=== PATIENT | female | born 1945 | race Caucasian/White ===

== ENCOUNTER 2017-01-18 11:30 | Outpatient (RCR) | payer MEDICARE, BC ==
[~2017-01-18 11:30] MED LIST: ASPIRIN 32325 MG/TAB PO; ATROVENT I0.2 MG/1 M IH; BUSPAR10 MG PO; CELEXA40 MG PO; DEXTROAMPHETAMI10 M1 PO; DIOVAN 80MG80 MG PO; DYRENIUM 50MG C50 MG PO; HCTZ 25MG TAB25 MG PO; LEVOXYL0.125 MG PO; LOPRESSOR 225 MG/TAB PO; MAREPA1200 MG PO; NITROSTAT0.4 MG/TAB SL; PLAVIX 75MG TAB75 MG PO; PRAVACHOL 40MG40 MG PO; PROAIR HFA0.09 MG/AC IH; RT ADVAIR 228 DISKUS IH; [UNRECOGNIZED DRUG - OTHER] IJ
== END 2017-02-18 09:14 | disposition still patient (30) ==
LOC: WSPT 11:30
DX: M54.5 Low back pain (principal)
CPT/HCPCS: G8978-GP; G8979-GP

== ENCOUNTER 2017-04-25 11:47 | Outpatient (CLI) | payer MEDICARE, BC ==
[2017-04-25] VITALS (8 sets, daily range): BP systolic 139–152; BP diastolic 71–78; PULSE 58–68
[~2017-04-25] VITALS: Ht 172.7 cm; Wt 99.1 kg
[~2017-04-25 11:47] MED LIST changes: +ADDERALL XR5 MG PO; +MAXZIDE-25MG TA1 TAB PO; +PROTONIX 40MG T40 MG PO; +REXULTI1 MG PO; +SYNTHROID0.137 MG PO; +VIIBRYD20 MG PO; +WELLBUTRIN 100100 MG PO
== END 2017-04-25 15:22 | disposition home or self-care (01) ==
LOC: COL.RAD 11:47
DX: M48.061 Spinal stenosis, lumbar region without neurogenic claudication (principal); M43.16 Spondylolisthesis, lumbar region; M51.27 Other intervertebral disc displacement, lumbosacral region; M46.87 Other specified inflammatory spondylopathies, lumbosacral region; N20.0 Calculus of kidney; M89.38 Hypertrophy of bone, other site; M47.816 Spondylosis without myelopathy or radiculopathy, lumbar region; M51.36 Other intervertebral disc degeneration, lumbar region
CPT/HCPCS: Q9965

== ENCOUNTER → 2017-05-23 | Outpatient (CLI) | payer MEDICARE, BC | LOC: COL.RAD 15:31 | DX: M43.16 Spondylolisthesis, lumbar region (principal); M47.816 Spondylosis without myelopathy or radiculopathy, lumbar region; M48.061 Spinal stenosis, lumbar region without neurogenic claudication; M85.80 Other specified disorders of bone density and structure, unspecified site; M46.86 Other specified inflammatory spondylopathies, lumbar region ==

== ENCOUNTER → 2017-05-23 | Outpatient (CLI) | payer MEDICARE, BC | LOC: MHCPAIN 14:11 | DX: G89.29 Other chronic pain (principal); M47.27 Other spondylosis with radiculopathy, lumbosacral region; M48.061 Spinal stenosis, lumbar region without neurogenic claudication | CPT/HCPCS: G0463 ==

== ENCOUNTER → 2017-06-06 | Outpatient (CLI) | payer MEDICARE, BC | LOC: MHCPAIN 14:29 | DX: G89.29 Other chronic pain (principal); M47.27 Other spondylosis with radiculopathy, lumbosacral region; M48.061 Spinal stenosis, lumbar region without neurogenic claudication | CPT/HCPCS: G0463 ==

== ENCOUNTER → 2017-06-23 | Outpatient (CLI) | payer MEDICARE, BC | LOC: MHCPAIN 09:04 | DX: M47.27 Other spondylosis with radiculopathy, lumbosacral region (principal); M43.17 Spondylolisthesis, lumbosacral region; M53.2X6 Spinal instabilities, lumbar region; M48.061 Spinal stenosis, lumbar region without neurogenic claudication | CPT/HCPCS: J1100; J2250; J3010; Q9967 ==

== ENCOUNTER → 2017-07-19 | Outpatient (CLI) | payer MEDICARE, BC | LOC: MHCPAIN 12:55 | DX: G89.29 Other chronic pain (principal); M47.27 Other spondylosis with radiculopathy, lumbosacral region; M53.3 Sacrococcygeal disorders, not elsewhere classified; M48.061 Spinal stenosis, lumbar region without neurogenic claudication | CPT/HCPCS: G0463 ==

== ENCOUNTER → 2017-08-18 | Outpatient (CLI) | payer MEDICARE, BC | LOC: MHCPAIN 11:50 | DX: M47.27 Other spondylosis with radiculopathy, lumbosacral region (principal); M43.16 Spondylolisthesis, lumbar region; M48.061 Spinal stenosis, lumbar region without neurogenic claudication | CPT/HCPCS: J1100; J3010; Q9967 ==

== ENCOUNTER → 2017-09-14 | Outpatient (CLI) | payer MEDICARE, BC | LOC: MHCPAIN 11:46 | DX: G89.29 Other chronic pain (principal); M47.817 Spondylosis without myelopathy or radiculopathy, lumbosacral region; M54.16 Radiculopathy, lumbar region; M48.061 Spinal stenosis, lumbar region without neurogenic claudication | CPT/HCPCS: G0463 ==

== ENCOUNTER 2017-09-23 17:14 | Inpatient (IN) | payer MEDICARE, BC ==
[~2017-09-23] VITALS: Ht 167.6 cm; Wt 98.8 kg
[2017-09-23 18:13] LABS: BASO % 0.6 % (0.0-2.0); EOS % 0.2 % (0-4.0); GRAN # 3.2 (1.4-6.5); GRAN % 50.3 % (42.2-75.2); HEMATOCRIT 48.4 % (37.0-47.0); HEMOGLOBIN 16.3 g/dl (12.5-16.0); LYMPH # 2.3 (1.2-3.4); MEAN CELL VOLUME 90 fl (80.0-100.0); MEAN CORPUSCULAR HEMOGLOBIN 30 pg (27.0-31.0); MEAN CORPUSCULAR HGB CONC 34 g/dl (33.0-37.0); MEAN PLATELET VOLUME 10.4 fl (7.4-10.4); MONO # 0.8 (0.1-0.6); MONO % 12.7 % (1.7-9.3); PLATELET COUNT 220 K/mm3 (130-400); RED BLOOD COUNT 5.41 M/mm3 (4.10-5.30); REDCELL DISTRIBUTION WIDTH-CV 13.4 % (11.5-14.5)
[2017-09-23 18:20] LABS: INR 1.1 (0.8-3.0); PROTHROMBIN TIME 12.3 SECONDS (9.7-12.8)
[2017-09-23 18:28] LABS: ALANINE AMINOTRANSFERASE 44 U/L (9-52); ALBUMIN 4.5 gm/dL (3.5-5.0); ALKALINE PHOSPHATASE 96 U/L (50-136); ANION GAP 15 mmol/L (7-16); AST,SGOT 32 U/L (15-37); BILIRUBIN,TOTAL 1.5 mg/dL (0.0-1.0); BLOOD UREA NITROGEN 15 mg/dL (7-17); CALCIUM 8.9 mg/dL (8.4-10.2); CARBON DIOXIDE 25 mmol/L (22-30); CHLORIDE 100 mmol/L (98-107); CREATININE, serum 1.25 mg/dL (0.52-1.25); GLUCOSE 145 mg/dL (74-106); POTASSIUM 3.6 mmol/L (3.4-5.0); SODIUM 140 mmol/L (137-145); TOTAL PROTEIN 7.7 gm/dL (6.4-8.2)
[2017-09-23 18:44] LABS: TROPONIN-I < 0.012 ng/mL (0.000-0.034)
[2017-09-23 19:25] LABS: COLLECTION METHOD CLEAN CATCH
[2017-09-23 19:53] LABS: MUCOUS Present /lpf; PH 5 (5-8); SQUAMOUS EPITHELIAL 0-2 /hpf; URINE APPEARANCE Clear; URINE BACTERIA None Seen /hpf; URINE BILIRUBIN Negative (NEGATIVE); URINE BLOOD 2+ (NEGATIVE); URINE COLOR Yellow; URINE GLUCOSE Negative (NEGATIVE); URINE KETONE Negative (NEGATIVE); URINE LEUKOCYTE ESTERASE 2+ (NEGATIVE); URINE NITRATE Negative (NEGATIVE); URINE PROTEIN(semi-quant) Negative (NEGATIVE); URINE UROBILINOGEN Negative (NEGATIVE)
[2017-09-23 22:09] VITALS: BP 117/51; PULSE 87; TEMP 98.5
[2017-09-24 00:22] VITALS: BP 133/50; PULSE 86; TEMP 98.2
[2017-09-24 05:11] VITALS: BP 122/65; PULSE 98; TEMP 98.5
[2017-09-24 06:57] LABS: BASO % 0.4 % (0.0-2.0); EOS % 0.4 % (0-4.0); GRAN # 2.2 (1.4-6.5); GRAN % 47.1 % (42.2-75.2); LYMPH % 41.8 % (20.0-51.0); MEAN CELL VOLUME 91 fl (80.0-100.0); MEAN CORPUSCULAR HEMOGLOBIN 30 pg (27.0-31.0); MEAN CORPUSCULAR HGB CONC 33 g/dl (33.0-37.0); MEAN PLATELET VOLUME 10.8 fl (7.4-10.4); MONO # 0.5 (0.1-0.6); MONO % 9.9 % (1.7-9.3); PLATELET COUNT 185 K/mm3 (130-400); RED BLOOD COUNT 4.51 M/mm3 (4.10-5.30); REDCELL DISTRIBUTION WIDTH-CV 13.5 % (11.5-14.5)
[2017-09-24 07:01] LABS: CALCIUM 8.2 mg/dL (8.4-10.2); CREATININE, serum 1.23 mg/dL (0.52-1.25); POTASSIUM 3.1 mmol/L (3.4-5.0)
[2017-09-24 07:15] LABS: HEMOGLOBIN 13.7 g/dl (12.5-16.0)
[2017-09-24 07:31] LABS: TSH w REFLEX 7.41 uIU/mL (0.465-4.680)
[2017-09-24 08:00] VITALS: BP 145/60; PULSE 115; TEMP 99.1
[2017-09-24 12:02] VITALS: BP 113/48; PULSE 73; TEMP 98
[2017-09-24 15:04] VITALS: BP 147/48; PULSE 84; TEMP 98.6
[2017-09-25 00:01] VITALS: BP 119/62; PULSE 85; TEMP 98.7
[2017-09-25 06:23] VITALS: BP 134/98; PULSE 75; TEMP 98.7
[2017-09-25 06:53] LABS: HEMATOCRIT 40.1 % (37.0-47.0); MEAN CELL VOLUME 92 fl (80.0-100.0); MEAN CORPUSCULAR HEMOGLOBIN 30 pg (27.0-31.0); MEAN CORPUSCULAR HGB CONC 32 g/dl (33.0-37.0); MEAN PLATELET VOLUME 10.6 fl (7.4-10.4); PLATELET COUNT 187 K/mm3 (130-400); RED BLOOD COUNT 4.35 M/mm3 (4.10-5.30); REDCELL DISTRIBUTION WIDTH-CV 13.7 % (11.5-14.5)
[2017-09-25 07:13] LABS: CALCIUM 8.3 mg/dL (8.4-10.2); CREATININE, serum 1.25 mg/dL (0.52-1.25); PHOSPHOROUS 3.2 mg/dL (2.5-4.5); POTASSIUM 3.6 mmol/L (3.4-5.0)
[2017-09-25 08:03] VITALS: BP 133/54; PULSE 85; TEMP 98.7
[2017-09-25] MEDS ORDERED: IPRATROPIUM BROM3 M1 IH (09:47)
[2017-09-25] MEDS ORDERED: PREDNISONE20 MG PO (09:49)
[2017-09-25] MEDS ORDERED: ZITHROMAX 250M250 MG PO (09:50)
[2017-09-25 13:39] LABS: BAND 1 % (0-10); LYMPHOCYTE 41 % (20.0-51.0); NEUTROPHILS 54 % (42.0-75.2); PLATELET ESTIMATE NORMAL (NORMAL)
== END 2017-09-25 12:46 | disposition home or self-care (01) | DRG 872 ==
LOC: COL.ER 17:14 → MEDICAL 20:00
PROVIDERS: Emergency Medicine; Internal Medicine; Nurse Practitioner
DX: A41.9 Sepsis, unspecified organism (principal); J44.1 Chronic obstructive pulmonary disease with (acute) exacerbation; I50.32 Chronic diastolic (congestive) heart failure; R65.20 Severe sepsis without septic shock; I11.0 Hypertensive heart disease with heart failure; I25.10 Atherosclerotic heart disease of native coronary artery without angina pectoris; I27.22 Pulmonary hypertension due to left heart disease; F17.210 Nicotine dependence, cigarettes, uncomplicated; J45.909 Unspecified asthma, uncomplicated; F98.8 Other specified behavioral and emotional disorders with onset usually occurring in childhood and adolescence
CPT/HCPCS: 99222-AI; 99239; J0456; J0696; J1650; J2405; J2930; J7030; J7050

== ENCOUNTER → 2018-05-30 | Outpatient (CLI) | payer MEDICARE, BC ==
[~2018-05-30] MED LIST changes: +IPRATROPIUM BROM3 M1 IH; +PREDNISONE20 MG PO; +ZITHROMAX 250M250 MG PO
[2018-05-30 12:38] LABS: CALCIUM 9.5 mg/dL (8.4-10.2); CREATININE, serum 1.33 mg/dL (0.52-1.25); POTASSIUM 3.5 mmol/L (3.4-5.0); URIC ACID 10.5 mg/dL (2.5-6.2)
== END ==
LOC: COL.LAB 12:20
PROVIDERS: Internal Medicine
DX: M10.071 Idiopathic gout, right ankle and foot (principal)

== ENCOUNTER → 2018-09-27 | Outpatient (CLI) | payer MEDICARE, BC | LOC: MHCPAIN 12:41 | DX: G89.29 Other chronic pain (principal); M47.817 Spondylosis without myelopathy or radiculopathy, lumbosacral region; M54.16 Radiculopathy, lumbar region; M53.3 Sacrococcygeal disorders, not elsewhere classified; M48.061 Spinal stenosis, lumbar region without neurogenic claudication | CPT/HCPCS: G0463 ==

== ENCOUNTER 2018-11-06 14:00 | Outpatient (RCR) | payer MEDICARE, BC | END 2018-11-29 10:27 | disposition home or self-care (01) | LOC: WSPT 14:00 | DX: M47.817 Spondylosis without myelopathy or radiculopathy, lumbosacral region (principal); M48.061 Spinal stenosis, lumbar region without neurogenic claudication; M53.3 Sacrococcygeal disorders, not elsewhere classified ==

== ENCOUNTER 2018-12-21 17:09 | Inpatient (IN) | payer MEDICARE, BC ==
[~2018-12-21] VITALS: Ht 170.2 cm; Wt 96.4 kg
[2018-12-21 18:21] LABS: BASO % 0.3 % (0.0-2.0); EOS % 0.5 % (0-4.0); GRAN # 5.9 (1.4-6.5); HEMATOCRIT 44.4 % (37.0-47.0); HEMOGLOBIN 15.4 g/dl (12.5-16.0); LYMPH # 1.8 (1.2-3.4); LYMPH % 20.8 % (20.0-51.0); MEAN CELL VOLUME 87 fl (80.0-100.0); MEAN CORPUSCULAR HEMOGLOBIN 30 pg (27.0-31.0); MEAN CORPUSCULAR HGB CONC 35 g/dl (33.0-37.0); MEAN PLATELET VOLUME 10.5 fl (7.4-10.4); MONO % 11.2 % (1.7-9.3); PLATELET COUNT 308 K/mm3 (130-400); RED BLOOD COUNT 5.12 M/mm3 (4.10-5.30); REDCELL DISTRIBUTION WIDTH-CV 13.9 % (11.5-14.5)
[2018-12-21 18:30] LABS: PROTHROMBIN TIME 12.2 SECONDS (9.7-12.8)
[2018-12-21 18:32] LABS: PARTIAL THROMBOPLASTIN TIME 29.3 SECONDS (26.0-37.0)
[2018-12-21 18:36] LABS: ALBUMIN 4.2 gm/dL (3.5-5.0); BILIRUBIN,TOTAL 2.5 mg/dL (0.0-1.0); C-REACTIVE PROTEIN 6.1 mg/dL (0.0-0.9); CREATININE, serum 1.13 (0.52-1.25); POTASSIUM 3.4 mmol/L (3.4-5.0); TOTAL PROTEIN 7.7 gm/dL (6.4-8.2)
[2018-12-21 19:29] LABS: COLLECTION METHOD CLEAN CATCH
[2018-12-21 20:06] LABS: MUCOUS Present /lpf; PH 5 (5-8); URINE APPEARANCE Hazy; URINE BACTERIA None Seen /hpf; URINE BILIRUBIN Negative (NEGATIVE); URINE BLOOD Negative (NEGATIVE); URINE COLOR Yellow; URINE GLUCOSE Negative (NEGATIVE); URINE KETONE Trace (NEGATIVE); URINE LEUKOCYTE ESTERASE 2+ (NEGATIVE); URINE NITRATE Negative (NEGATIVE); URINE PROTEIN(semi-quant) Negative (NEGATIVE); URINE RBC 0-2 /hpf; URINE UROBILINOGEN Negative (NEGATIVE)
[2018-12-21] MEDS ORDERED: CLARITIN 1010 MG/TAB PO (20:53)
[2018-12-21] MEDS ORDERED: OSCAL 500 TAB500 MG PO (20:54)
[2018-12-21] MEDS ORDERED: ZYLOPRIM 300MG300 MG PO (20:55)
[2018-12-21] MEDS ORDERED: NORITATE1% TOP (20:55)
[2018-12-21] MEDS ORDERED: VIIBRYD40 MG PO (21:37)
[2018-12-21] MEDS ORDERED: WELLBUTRIN SR100 M1 PO (21:40)
[2018-12-21] MEDS ORDERED: RT ADVAIR 228 DISKUS IH (21:42)
[2018-12-21] MEDS ORDERED: PROTONIX 40MG T40 MG PO (21:43)
[2018-12-21] MEDS ORDERED: MULTIPLE VITAMI1 CAP PO (21:46)
--- NOTE | 2018-12-21 22:10 | NUR ---
Report received from ER nurse. Admitted to room 346 via gurney. Assessment complete. States she hasnt taken any medications in the last five days except today took an antidepressant. Son at bedside. Oriented to room and policy. VS stable. Orders initiated. Right lower extremity-mostly foot-red, warm, swollen. Redness marked by ER staff. Elevated on pillows. Denies need for pain medication. C/O indegestion. Meds given per dr order. Plan of care discussed. Denies questions at this time. Call light within reach. Bed in low postion/locked. Will monitor.
[2018-12-21 22:25] VITALS: BP 149/62; PULSE 87; TEMP 99.7
[2018-12-22] VITALS (7 sets, daily range): BP systolic 107–146; BP diastolic 45–71; PULSE 62–75; TEMP 98–99.5
--- NOTE | 2018-12-22 05:30 | NUR ---
Rested for the last few hours. States her pain is 4/10t to right foot. Redness/swelling marked in ER unchanged. Up to commode with 2-pivot transfer. Transfers okay but requires two. AM meds given. Denies questions or concerns at this time. Call light within reach. Will monitor.
--- NOTE | 2018-12-22 09:19 | NUR ---
Patient resting in bed. She did well with breakfast. Denies the need for pain medication, reports pain is managed at rest. Iv antibioitc as ordered. Right foot is reddened & swollen. skin flaky. L.foot less swollen, third toe reddened & swollen, skin flaky. Will monitor.
--- NOTE | 2018-12-22 10:36 | NUR ---
Initial visit; Patient thanked Bundle Cutter for looking in on her and offering spiritual care and to keep Fern in her prayers.
--- NOTE | 2018-12-22 12:50 | NUR ---
HARITHA met with the patient to discuss a discharge plan. The pt lives alone in [place]. The pt has a cane and a walker and denies usage. The pt reports she has limited ability for ADLs. The pt has not ever had home health services. The pt's PCP is Dr. Washington and/or Dr. Funes. The pt receives her medications via mail from [facility] or [facility]. The pt report no difficulties obtainin her medications at this time. The pt. does not have advanced directives in the EMR, but was interested in obtaining a DPOA-HC form. HARITHA provided the form. HARITHA provided a packet of resources for the pt. PT/OT were ordered for the patient. SW will continue to follow for discharge recommendations.
--- NOTE | 2018-12-22 19:22 | NUR ---
Patient has had an uneventful day. Sitting up in bed, eating dinner. Denies the need for pain medication. Report to kelly Lal.
[2018-12-23 05:30] VITALS: BP 108/42; PULSE 60; TEMP 98.5
--- NOTE | 2018-12-23 06:30 | NUR ---
Patient had a good night. She was up several times to the bathroom in the night. She was not able to have a bowel movement. She is having pain with ambulation to her feet but not when laying in bed. She did not want to take anything for pain. She stated this is the most she has moved in a few weeks. No other changes at this time. Call light within reach.
[2018-12-23 06:40] LABS: BASO % 0.3 % (0.0-2.0); EOS # 0.1 (0.0-0.7); EOS % 0.9 % (0-4.0); GRAN # 3.1 (1.4-6.5); GRAN % 52.9 % (42.2-75.2); HEMATOCRIT 41.1 % (37.0-47.0); HEMOGLOBIN 13.6 g/dl (12.5-16.0); LYMPH # 1.9 (1.2-3.4); LYMPH % 32.8 % (20.0-51.0); MEAN CELL VOLUME 89 fl (80.0-100.0); MEAN CORPUSCULAR HEMOGLOBIN 30 pg (27.0-31.0); MEAN CORPUSCULAR HGB CONC 33 g/dl (33.0-37.0); MONO # 0.7 (0.1-0.6); MONO % 12.6 % (1.7-9.3); PLATELET COUNT 273 K/mm3 (130-400); REDCELL DISTRIBUTION WIDTH-CV 14.1 % (11.5-14.5)
[2018-12-23 06:48] LABS: CALCIUM 8.7 mg/dL (8.4-10.2); CREATININE, serum 1.17 (0.52-1.25); POTASSIUM 3.1 mmol/L (3.4-5.0)
--- NOTE | 2018-12-23 07:00 | NUR ---
Report received from TACO Lal. Pt in bed resting with eyes closed, will continue to monitor.
[2018-12-23 08:12] VITALS: BP 120/37; PULSE 58; TEMP 97.6
--- NOTE | 2018-12-23 10:45 | NUR ---
Assessment charted. Pt in bed resting with eyes open. Agreeable to wake up now but was resting this am d/t poor night last night, states she wasn't able to sleep well and did not feel oriented last night. Oriented at this time, family here to visit. Pt has pain in feet, RLE is more sensitive and really only hurts when ambulating. Pt ordering breakfast. INT to RF. Will continue to monitor.
[2018-12-23 11:39] VITALS: BP 108/42; PULSE 53; TEMP 98.3
--- NOTE | 2018-12-23 14:05 | NUR ---
Contracts Officer offered prayer and support with patient.
[2018-12-23 17:10] VITALS: BP 119/54; PULSE 65; TEMP 98.3
--- NOTE | 2018-12-23 17:53 | NUR ---
Pt has done well over shift. Up with me to walk around hallways approximately 40 feet this afternoon. Walks tenderly on R foot from soreness, gait is hesitant with wheeled walker. Resting in bed with feet elevated, denchristies needs, ordered supper, reading quietly, will give bedside shift report to nightift nurse who will resume care.
--- NOTE | 2018-12-23 20:00 | NUR ---
Patient assisted to bathroom with 1 assist and walker. Gait slightly unsteady d/t painful right foot. Back to bed after voiding yellow urine. SL to right forearm without redness or swelling. Is alert and oriented x4.
[2018-12-23 20:46] VITALS: BP 132/49; PULSE 72; TEMP 99
[2018-12-23 23:41] VITALS: BP 121/48; PULSE 68; TEMP 99
--- NOTE | 2018-12-24 04:05 | NUR ---
Patient assisted to bathroom, transfers slowly with steady gait and walker. Voids and back to bed. Denies need for pain meds at this time. Right leg elevated on 2 pillows.
[2018-12-24 04:31] VITALS: BP 124/67; PULSE 57; TEMP 98.1
--- NOTE | 2018-12-24 08:30 | NUR ---
Patient resting in bed at this time. Patient is alert and oriented, answers questions appropriately. Cellulitis in right foot is well within marked borders and skin appears a dull red. Left 3rd toe is reddened in a small area just below the toe nail. Patient states that the right foot is still painful to the touch and painful with movement, but declines pain medications for it. Patient denies needs at this time, call light within reach.
[2018-12-24 08:50] VITALS: BP 116/46; PULSE 66; TEMP 98.1
--- NOTE | 2018-12-24 09:52 | NUR ---
SW and community service patrol officer met with the patient to witness a DPOA-HC signing. The original was placed in the chart and copy was provided to the pt. There are no additional needs at this time.
--- NOTE | 2018-12-24 11:29 | NUR ---
HARITHA provided a list from Medicare.gov of home health agencies that serve the [facility]. The pt will look over the list and inform HARITHA about her chose. HARITHA will continue to follow.
[2018-12-24 11:37] VITALS: BP 123/49; PULSE 63; TEMP 98.5
[2018-12-24 16:07] VITALS: BP 128/55; PULSE 64; TEMP 98.5
[2018-12-24 19:49] VITALS: BP 135/63; PULSE 62; TEMP 98
--- NOTE | 2018-12-24 22:00 | NUR ---
Patient resting well in bed. IV site to right FA without redness or swelling. Takes HS meds without problem. Denies need for pain meds at this time. RT foot continues with swelling.
[2018-12-24 23:55] VITALS: BP 125/52; PULSE 63; TEMP 98.5
[2018-12-25 04:54] VITALS: BP 136/61; PULSE 58; TEMP 97.7
--- NOTE | 2018-12-25 05:50 | NUR ---
Patient reports resting well. Takes AM meds without problem.
[2018-12-25 06:53] LABS: C-REACTIVE PROTEIN 1.8 mg/dL (0.0-0.9); CALCIUM 8.9 mg/dL (8.4-10.2); CREATININE, serum 1.11 (0.52-1.25); POTASSIUM 3.8 mmol/L (3.4-5.0)
[2018-12-25 07:55] VITALS: BP 111/55; PULSE 56; TEMP 97.6
--- NOTE | 2018-12-25 09:55 | NUR ---
HARITHA met with the patient to review discharge plan. The patient reports that she is interested in post-acute rehab at [facility]. HARITHA presented and explained the patient choice form to the patient. The patient preferred 1) [facility] and then either [facility] or [facility] for a second preference. Patient choice form signed by the patient and she was provided a copy. HARITHA then contacted and faxed a referral to all three facilities. SW awaiting their screening.
--- NOTE | 2018-12-25 11:13 | NUR ---
Andrew, at [facility], reports that they can accept the patient for a skilled stay. SW to inform the patient. Awaiting Pa's screening.
[2018-12-25] MEDS ORDERED: TYLENOL 325MG325 MG PO (12:03)
[2018-12-25] MEDS ORDERED: MOTRIN 400400 MG/TAB PO (12:05)
[2018-12-25] MEDS ORDERED: CEPHALEXIN500 M1 PO (12:08)
[2018-12-25 12:13] VITALS: BP 120/75; PULSE 54; TEMP 98.5
--- NOTE | 2018-12-25 12:38 | NUR ---
First visit from the test case developer. No needs right now.
--- NOTE | 2018-12-25 13:31 | NUR ---
Meagan, at [facility], reports that they can accept the patient. HARITHA informed the patient and patient's son. The patient reports that she would still like to pursue with [facility]. The patient is to discharge today, 12/25, to [facility] for a skilled stay. Transportation was set for 1430, via [facility]. HARITHA informed the patient, patient's nurse, and the patient's son via phone. They were all in agreeance. HARITHA also presented and explained the IM form to the patient. The patient verbalized understanding, signed, and she was provided a copy. No additional needs at this time.
--- NOTE | 2018-12-25 14:46 | NUR ---
PATIENT DISCHARGING TO [facility]. GAVE PRODUCTION STAGE MANAGER INFO PACKET. CALLED REPORT. DC'D RIGHT FORARM IV, COVERED SITE WITH BANDAID. PATIENT DISCHARGED WITH ALL HER PERSONAL BELONGINGS.
== END 2018-12-25 14:48 | DRG 603 ==
LOC: COL.ER 17:09 → SURG 20:33
PROVIDERS: Emergency Medicine; Internal Medicine; Physician Assistant; ADMIT Family Medicine
DX: L03.115 Cellulitis of right lower limb (principal); I50.32 Chronic diastolic (congestive) heart failure; I11.0 Hypertensive heart disease with heart failure; J44.9 Chronic obstructive pulmonary disease, unspecified; E78.5 Hyperlipidemia, unspecified; F32.9 Major depressive disorder, single episode, unspecified; E03.9 Hypothyroidism, unspecified; M10.9 Gout, unspecified; I25.10 Atherosclerotic heart disease of native coronary artery without angina pectoris; Z95.5 Presence of coronary angioplasty implant and graft; R19.7 Diarrhea, unspecified; F98.8 Other specified behavioral and emotional disorders with onset usually occurring in childhood and adolescence; R53.81 Other malaise
CPT/HCPCS: 99222-AI; 99232-AI; 99239; J0690; J1650; J7030

== ENCOUNTER → 2020-05-16 | Outpatient (CLI) | payer MEDICARE, BC ==
[~2020-05-16] MED LIST changes: +CEPHALEXIN500 M1 PO; +CLARITIN 1010 MG/TAB PO; +MOTRIN 400400 MG/TAB PO; +MULTIPLE VITAMI1 CAP PO; +NORITATE1% TOP; +OSCAL 500 TAB500 MG PO; +TYLENOL 325MG325 MG PO; +VIIBRYD40 MG PO; +WELLBUTRIN SR100 M1 PO; +ZYLOPRIM 300MG300 MG PO
== END ==
LOC: COL.RAD 12:06
DX: M47.816 Spondylosis without myelopathy or radiculopathy, lumbar region (principal); M51.36 Other intervertebral disc degeneration, lumbar region; G95.9 Disease of spinal cord, unspecified

== ENCOUNTER → 2022-09-15 | Outpatient (REF) | payer MEDICARE, BC | LOC: ZCOL.LAB 15:14 | DX: R05.9 Cough, unspecified (principal) ==

== ENCOUNTER 2022-11-14 14:33 | Inpatient (IN) | payer MEDICARE, BC ==
[~2022-11-14] VITALS: Ht 167.6 cm; Wt 91.8 kg
[2022-11-14 15:06] LABS: BASO # 0.1 K/mm3 (0.0-0.2); BASO % 0.8 % (0.0-2.0); EOS # 0.2 K/mm3 (0.0-0.7); EOS % 2.3 % (0.0-4.0); GRAN # 6.5 K/mm3 (1.4-6.5); GRAN % 61.7 % (42.2-75.2); HEMATOCRIT 47.1 % (37.0-47.0); HEMOGLOBIN 15.5 g/dl (12.5-16.0); LYMPH # 2.7 K/mm3 (1.2-3.4); LYMPH % 25.9 % (20.0-51.0); MEAN CELL VOLUME 92 fl (80.0-100.0); MEAN CORPUSCULAR HEMOGLOBIN 30 pg (27-31); MEAN CORPUSCULAR HGB CONC 33 g/dl (33.0-37.0); MEAN PLATELET VOLUME 10.5 fl (7.4-10.4); MONO # 0.9 K/mm3 (0.1-0.6); MONO % 8.4 % (1.7-9.3); PLATELET COUNT 250 K/mm3 (130-400); RED BLOOD COUNT 5.15 M/mm3 (4.10-5.30); REDCELL DISTRIBUTION WIDTH-CV 14.7 % (11.5-14.5)
[2022-11-14 15:23] LABS: ALANINE AMINOTRANSFERASE 29 U/L (0-55); ALBUMIN 3.8 gm/dL (3.4-4.8); ALKALINE PHOSPHATASE 76 U/L (40-150); ANION GAP 15 mmol/L (7-16); AST,SGOT 35 U/L (5-34); BILIRUBIN,TOTAL 1.3 mg/dL (0.2-1.2); BLOOD UREA NITROGEN 15 mg/dL (10-20); CALCIUM 9.6 mg/dL (8.4-10.2); CARBON DIOXIDE 26 mmol/L (23-31); CHLORIDE 102 mmol/L (98-107); GLUCOSE 93 mg/dL (70-99); POTASSIUM 3.5 mmol/L (3.5-4.5); SODIUM 143 mmol/L (136-145); TOTAL PROTEIN 7.5 gm/dL (6.2-8.1)
[2022-11-14 15:29] LABS: TROPONIN-I < 0.010 ng/mL (0.00-0.033)
[2022-11-14] MEDS ORDERED: ASPIRIN 32325 MG/TAB PO (17:58)
[2022-11-14] MEDS ORDERED: ARTIFICIAL TEAR15 M7 OP (18:04)
[2022-11-14] MEDS ORDERED: LASIX 20MG TABL20 MG PO (18:05)
[2022-11-14] MEDS ORDERED: ZYRTEC 10MG10 MG PO (18:33)
[2022-11-14] MEDS ORDERED: COLACE 100100 MG/CAP PO (18:34)
[2022-11-14] MEDS ORDERED: CYMBALTA 20MG20 MG PO (18:35)
[2022-11-14] MEDS ORDERED: NYSTATIN100000 U/1 TOP (18:40)
[2022-11-14] MEDS ORDERED: NIZORAL SHAMPO120 M1 TP (18:40)
[2022-11-14] MEDS ORDERED: KLOR-CON M1010 MEQ PO (18:41)
[2022-11-14] MEDS ORDERED: SINGULAIR 110 MG/TAB PO (18:44)
[2022-11-14] MEDS ORDERED: SYNTHROID 0.0.025 MG PO (18:45)
[2022-11-14] MEDS ORDERED: PRAVACHOL 40MG40 MG PO (18:46)
[2022-11-14] MEDS ORDERED: ATARAX 25MG25 MG/TAB PO (18:47)
[2022-11-14] MEDS ORDERED: IMODIUM 2MG CAPS2 MG PO (18:48)
[2022-11-14] MEDS ORDERED: GOOD NEIGH1200 MG/15 PO (18:48)
[2022-11-14] MEDS ORDERED: MIRALAX PA17 GM/Dose PO (18:49)
[2022-11-14 19:45] LABS: INR 1.1 (0.8-3.0); PROTHROMBIN TIME 12.6 SECONDS (9.7-12.8)
[2022-11-14 19:56] LABS: MAGNESIUM 2.1 mg/dL (1.6-2.6)
--- NOTE | 2022-11-14 20:00 | NUR ---
PT ARRIVES VIA STRETCHER FROM ED, MOVED TO BED WITH SLIDE BOARD AND 3 ASSIST. MILD DISCOMFORT TO RT HIP WITH ACTIVITY. HAS VELEZ CATHETER TO BSD WITH DANIELE, HAZY URINE. HAS INT TO LAC, STARTED BY EMS. IS ALERT, ORIENTED X2. HAS OXYGEN AT 2L/NC. REPORTS PAIN 10/10 TO RT HIP, MEDICATED IN ED AT 1925 WITH MORPHINE AND OXYCODONE.
[2022-11-14 20:16] LABS: TSH w REFLEX 6.812 uIU/mL (0.350-4.940)
[2022-11-14 20:18] LABS: COLLECTION METHOD CLEAN CATCH
[2022-11-14 20:27] LABS: MUCOUS Present (NOT PRESENT); SQUAMOUS EPITHELIAL 0-2 /hpf (0-10); URINE BACTERIA Rare /hpf (NONE SEEN); URINE RBC 0-2 /hpf (0-2)
[2022-11-14 20:28] LABS: URINE APPEARANCE Hazy (CLEAR/HAZY); URINE BLOOD Negative (NEGATIVE); URINE COLOR Yellow (YELLOW); URINE GLUCOSE Negative (NEGATIVE); URINE KETONE Negative (NEGATIVE); URINE NITRATE Positive (NEGATIVE); URINE PROTEIN(semi-quant) Negative (NEGATIVE); URINE UROBILINOGEN 0.2 (NEGATIVE)
--- NOTE | 2022-11-14 20:45 | NUR ---
NEW IV STARTED TO RT WRIST, #20 INSYTE ON FIRST ATTEMPT. IVF CONNECTED AND INFUSING WITHOUT PROBLEM. SON AT BEDSIDE, QUESTIONS ANSWERED. PT ORIENTED X3, WITH CONFUSED CONVERSATION AT TIMES. POTASSIUM REPLACEMENT WITH EFFERVESCENT TABS INITIATED FOR K=3.5. PT TAKING ORAL FLUIDS/MEDS WITHOUT DIFFICULTY. ADMISSION QUESTIONS COMPLETED.
[2022-11-14 21:00] VITALS: BP_SYST 112
[2022-11-14] MEDS ORDERED: NITROSTAT0.4 MG/TAB SL (22:34)
[2022-11-14] MEDS ORDERED: CYMBALTA 30MG30 MG PO (22:36)
[2022-11-14] MEDS ORDERED: WELLBUTRIN XL150 MG PO (22:37)
[2022-11-14] MEDS ORDERED: SYNTHROID0.175 MG PO (22:44)
[2022-11-14] MEDS ORDERED: NYSTATIN CREAM15 GM TP (22:45)
[2022-11-14] MEDS ORDERED: PROTONIX 40MG T40 MG PO (22:46)
[2022-11-14] MEDS ORDERED: TRIAMCINOLONE A15 G3 TP (22:47)
[2022-11-14] MEDS ORDERED: ABILIFY5 MG PO (22:48)
[2022-11-14] MEDS ORDERED: MYLANTA MAXIMU355 M1 PO (22:48)
[2022-11-14] MEDS ORDERED: GENTLE LAXATIVE10 MG RC (22:48)
[2022-11-14] MEDS ORDERED: ZYLOPRIM 300MG300 MG PO (22:49)
[2022-11-14 23:38] VITALS: BP 110/55; PULSE 70; TEMP 97.9
--- NOTE | 2022-11-14 23:52 | NUR ---
LAST DOSE OF POTASSIUM GIVEN. HS MEDS INCLUDING OXYCODONE 5MG PO FOR RT HIP PAIN.
[2022-11-15] VITALS (22 sets, daily range): BP systolic 94–131; BP diastolic 57–67; PULSE 76–108; TEMP 97.9–99.6
--- NOTE | 2022-11-15 04:01 | NUR ---
MEDICATED WITH OXYCODONE 5MG PO AND ES TYLENOL PER SCHEDULE. PT RESTING WELL WITH OXYGEN ON AT 2L/NC.
[2022-11-15 06:29] LABS: BASO % 0.4 % (0.0-2.0); EOS # 0.3 K/mm3 (0.0-0.7); EOS % 2.9 % (0.0-4.0); GRAN # 6.8 K/mm3 (1.4-6.5); HEMATOCRIT 43.3 % (37.0-47.0); HEMOGLOBIN 14.6 g/dl (12.5-16.0); LYMPH # 1.4 K/mm3 (1.2-3.4); LYMPH % 15.4 % (20.0-51.0); MEAN CELL VOLUME 90 fl (80.0-100.0); MEAN CORPUSCULAR HEMOGLOBIN 30 pg (27-31); MEAN CORPUSCULAR HGB CONC 34 g/dl (33.0-37.0); MEAN PLATELET VOLUME 11.3 fl (7.4-10.4); MONO # 0.8 K/mm3 (0.1-0.6); PLATELET COUNT 188 K/mm3 (130-400); REDCELL DISTRIBUTION WIDTH-CV 14.5 % (11.5-14.5)
[2022-11-15 06:42] LABS: ALBUMIN 3.6 gm/dL (3.4-4.8); BILIRUBIN,TOTAL 1.6 mg/dL (0.2-1.2); CALCIUM 9.1 mg/dL (8.4-10.2); CREATININE, serum 0.9 mg/dL (0.57-1.11); POTASSIUM 4.1 mmol/L (3.5-4.5); TOTAL PROTEIN 6.6 gm/dL (6.2-8.1)
--- NOTE | 2022-11-15 08:10 | NUR ---
Pt. laying in bed. Pt. is alert and confused this am. IV fluids infusing to rt. forearm iv site. INT to lt. ac patent. Pt. reports pain to rt. hip. Will give pain meds per orders. Pt. requests water, pt. reminded that she is npo. Pt. continues to be forgettful. Pt. denies further needs, call light within reach, bed alarm on.
--- NOTE | 2022-11-15 09:14 | NUR ---
HARITHA confirmed with Meagan at [facility] that the patient is a long-term care resident with them and resides in [facility]. HARITHA contacted the patient's son/DPOA-HC, Jorge Luis Knowles (ph#[phone]), to complete intake. Jorge Luis confirms the above. The patient's PCP is Dr. Sunil Washington and her DPOA-HC is in EMR, which designates Jorge Luis. Jorge Luis states that the plan is for the patient to return back to [facility] upon discharge. HARITHA faxed updates to Meagan at [facility]. *Discharge plan: [facility] SN[facility]*
--- NOTE | 2022-11-15 13:08 | NUR ---
Initial visit: Talent Acquisition Relationship Manager stopped by room on rounds. Pt was resting and pretty groggy. Pt stated she had no needs right now. Talent Acquisition Relationship Manager will follow up as needed.
--- NOTE | 2022-11-15 14:02 | NUR ---
Pt. has been cleared for surgery. IVY Arnett, IVY Smith, and TACO Anderson notified. Consent signed per son and TACO Cline with a 2 witness verbal consent. Pt. ready. Sent down to OR.
--- NOTE | 2022-11-15 15:37 | NUR ---
PT OUT OF ROOM AT THIS TIME
--- NOTE | 2022-11-15 19:15 | NUR ---
Assessment complete. Patient still very drowsy post surgery. Currently on post op vitals-tachycardia and low grade temp. Blankets removed. Opens eyes to voide and follows commands. Currently on 5L/oxymask with O2 Sats 92-94%. Denies pain/nausea/shortness of breath. Attempted to decrease for weaning but drops down into mid 80s. Dressing to right hip CDI aquacell. SCDs/TEDs/Ice pack in place. IV to right FA with NS@75mls/hr infusing without difficulty. Denies current needs. Call light in reach. Will monitor.
--- NOTE | 2022-11-15 21:55 | NUR ---
Spoke with IVY Stephenson about increased O2 needs and wet breathe sounds. Patient is currently requiring O2@5L/NC. New orders received-notified radiology of STAT chest x ray.
[2022-11-16] VITALS (13 sets, daily range): BP systolic 113–136; BP diastolic 52–79; PULSE 71–103; TEMP 97.4–98.4
--- NOTE | 2022-11-16 01:20 | NUR ---
Patient continues to be very drowsy. Will open eyes to voice and follow some commands. Denies pain. Attempt to give PO meds-patient not awake enough to take at this time. Will continue to hold.
--- NOTE | 2022-11-16 06:08 | NUR ---
Patient still remains very drowsy. Does wake up with voice-follows commands. Denies pain. Has a wet cough. All PO meds have been held as patient to drowsy to even drink water. IVY Stephenson aware. IV fluids continue to infuse. Sanders cath with dark yellow urine. VS remained stable. Call light in reach. Will monitor.
[2022-11-16 07:23] LABS: HEMATOCRIT 41.9 % (37.0-47.0); HEMOGLOBIN 13.5 g/dl (12.5-16.0); MEAN CELL VOLUME 92 fl (80.0-100.0); MEAN CORPUSCULAR HEMOGLOBIN 30 pg (27-31); MEAN CORPUSCULAR HGB CONC 32 g/dl (33.0-37.0); MEAN PLATELET VOLUME 11.4 fl (7.4-10.4); PLATELET COUNT 184 K/mm3 (130-400); RED BLOOD COUNT 4.58 M/mm3 (4.10-5.30); REDCELL DISTRIBUTION WIDTH-CV 14.7 % (11.5-14.5)
[2022-11-16 07:40] LABS: CALCIUM 9.1 mg/dL (8.4-10.2); CREATININE, serum 0.87 mg/dL (0.57-1.11); POTASSIUM 4.1 mmol/L (3.5-4.5)
--- NOTE | 2022-11-16 11:46 | NUR ---
SW faxed updates to [facility].
--- NOTE | 2022-11-16 18:49 | NUR ---
RECEIVED REPORT FROM DAY SHIFT RN, THAT WAS CALLED TO THEM FROM [facility] PATIENT ARRIVAL PENDING FOR ADMIT TO ROOM 346.
--- NOTE | 2022-11-16 18:49 | NUR ---
RECEIVED CHANGE OF SHIFT REPORT FROM DAY SHIFT RN. PATIENT RESTING IN BED WITH NO NEEDS VOICED DURING REPORT. OXYGEN CONTINUES PER NC, PATIENT SLEEPING, DOES NOT AWAKE WHEN NURSING STAFF ENTER ROOM ON ROUNDS. BREATHING OBSERVED EVEN AND NONLABORED. TELE IN PLACE, VELEZ TO DD DRAINING YELLOW URINE. ICE TO HIP.
[2022-11-17] VITALS (10 sets, daily range): BP systolic 117–136; BP diastolic 51–58; PULSE 58–75; TEMP 97.4–99.1
--- NOTE | 2022-11-17 07:09 | NUR ---
CHANGE OF SHIFT REPORT GIVEN TO DAY SHIFT RNBELLA.
--- NOTE | 2022-11-17 11:57 | NUR ---
PATIENT ALERT TO SELF. PATIENT HERE FOR RIGHT HIP FRACTURE. AQUACELL TO RIGHT HIP, CDI NO DRAINAGE. PATIENT REPORTS PAIN, UNABLE TO REPORT PAIN SCALE. PAIN MEDICATION ADMINISTERED. IV'S X2 TO RIGHT WRIST AND LEFT FOREARM, FLUSH WELL. PATIENT ON 1.5L PER NC. BASELINE IS 2L. VELEZ TO BE DC'D. PATIENT RESTING IN CHAIR, CALL LIGHT IN REACH.
--- NOTE | 2022-11-17 14:30 | NUR ---
SW faxed updates to [facility].
--- NOTE | 2022-11-17 20:00 | NUR ---
PT RESTING IN BED. ALERT BUT CONFUSED. FOLLOWS DIRECTIONS. TAKES MEDS WITH APPLESAUCE. ORIENTED TO SELF. NO OBVIOUS PAIN. ENC PO FLUIDS. INCONT URINE. TOOK OFF BRIEF. STARTED PUREWICK. CALL LIGHT IN REACH. BED ALARM SET.
--- NOTE | 2022-11-17 20:05 | NUR ---
PT HAS DRY HACKY NONPRODUCTIVE COUGH. O2 1 1/2 L. NO DISTRESS.
[2022-11-18 00:16] VITALS: BP_SYST 127
--- NOTE | 2022-11-18 02:00 | NUR ---
PT PULLED OUT INT RT HAND.
[2022-11-18 03:16] VITALS: BP 118/48; PULSE 60; TEMP 97.2
[2022-11-18 04:29] VITALS: BP_SYST 118
--- NOTE | 2022-11-18 06:39 | NUR ---
PT STILL CONFUSED. THOUGHT THIS WAS NURSES HOUSE. TAKES AM MEDS WITH APPLESAUCE. STILL ENC PO FLUIDS. GOOD UO PER ISABEL. PT DENIES ANY PAIN.
[2022-11-18 06:55] LABS: BASO % 0.4 % (0.0-2.0); EOS # 0.5 K/mm3 (0.0-0.7); EOS % 5.6 % (0.0-4.0); GRAN # 5.4 K/mm3 (1.4-6.5); HEMATOCRIT 37.3 % (37.0-47.0); HEMOGLOBIN 12.2 g/dl (12.5-16.0); LYMPH # 2.1 K/mm3 (1.2-3.4); LYMPH % 23.3 % (20.0-51.0); MEAN CELL VOLUME 92 fl (80.0-100.0); MEAN CORPUSCULAR HEMOGLOBIN 30 pg (27-31); MEAN CORPUSCULAR HGB CONC 33 g/dl (33.0-37.0); MEAN PLATELET VOLUME 10.9 fl (7.4-10.4); MONO % 11.1 % (1.7-9.3); PLATELET COUNT 194 K/mm3 (130-400); RED BLOOD COUNT 4.07 M/mm3 (4.10-5.30); REDCELL DISTRIBUTION WIDTH-CV 14.6 % (11.5-14.5)
[2022-11-18 07:14] LABS: CALCIUM 8.8 mg/dL (8.4-10.2); CREATININE, serum 0.92 mg/dL (0.57-1.11)
[2022-11-18 07:47] VITALS: BP 133/74; PULSE 67; TEMP 98.1
--- NOTE | 2022-11-18 08:00 | NUR ---
PATIENT IS ALERT BUT CONFUSED. PATIENT FORGOT SHE FX HER HIP HOWEVER WHEN NURSING REORIENTED HER TO HER FALL, PATIENT STATES "I FALL ALL THE TIME". VSS. 02 @ 2L PER NC WITH SATS IN MID 90'S. PATIENT WEARS 02 @ 2L AT BASELINE. ALL OTHER VSS ON TELE. PATIENT IS A FEEDER. CRUSHED MEDS AND GIVEN WITH APPLESAUCE. 2 MAX ASSIST WITH SIT TO STAND LIFT. PT/OT CONSULTED. PATIENT WILL REQUIRED SNF PLACEMENT. CASE MANAGEMENT MANAGER CONSULTED FOR DISCHARGE NEEDS. HEAD TO TOE ASSESSMENT COMPLETE. DNR STATUS. NO OTHER NEEDS AT THIS TIME. SON AT BEDSIDE. CALL LIGHT IN REACH. BED ALARM ON.
--- NOTE | 2022-11-18 08:45 | NUR ---
HOSPITALIST TEAM ROUNDING, SON AT BEDSIDE, SEE NOTES.
[2022-11-18 09:00] VITALS: BP_SYST 133
--- NOTE | 2022-11-18 11:32 | NUR ---
The clinical team is ready to discharge the patient. HARITHA notified and faxed updates to Wade at [facility]. Wade reports that they good to accept the patient back today and a 1130 transport time was set up. HARITHA attempted four times to contact the patient's son, Jorge Luis, to update on the above. HARITHA left him two voicemails. The patient is to discharge today, 11/18, back to [facility] for a skilled stay. No additional needs at this time.
--- NOTE | 2022-11-18 11:45 | NUR ---
PATIENT DISCHARGING VIA WC, [facility]SF[facility], WITH [facility]. INFO PACKET GIVEN TO FIRE TECHNOLOGY INSTRUCTOR. DC'D TELE. DC'D LEFT FORARM IV AND COVERED SITE WITH [employer]. PATIENT IS DRESSED, PACKED AND DISCHARGED. CALLED REPORT TO NURSE AT [facility]. SODA DRY HOUSE OPERATOR ATTEMPTED TO CALL SON X4 AND LEFT MESSAGES TO LET HIM KNOW THE PATIENT IS DISCHARGING.
== END 2022-11-18 11:45 | DRG 521 ==
LOC: COL.ER 14:33 → SURG 18:12 → EDBEDREQ 19:06 → SURG 21:00
PROVIDERS: Emergency Medicine; Nurse Practitioner Family; Orthopaedic Surgery; Physician Assistant; ADMIT Internal Medicine
PROC: 0SRR0J9 Replacement of Right Hip Joint, Femoral Surface with Synthetic Substitute, Cemented, Open Approach (ICD-10-PCS; principal; 2022-11-14)
DX: S72.001A Fracture of unspecified part of neck of right femur, initial encounter for closed fracture (principal); J96.01 Acute respiratory failure with hypoxia; N39.0 Urinary tract infection, site not specified; E87.1 Hypo-osmolality and hyponatremia; I50.32 Chronic diastolic (congestive) heart failure; I13.0 Hypertensive heart and chronic kidney disease with heart failure and stage 1 through stage 4 chronic kidney disease, or unspecified chronic kidney disease; W19.XXXA Unspecified fall, initial encounter; E87.6 Hypokalemia; E78.5 Hyperlipidemia, unspecified; I25.10 Atherosclerotic heart disease of native coronary artery without angina pectoris; I27.20 Pulmonary hypertension, unspecified; N18.2 Chronic kidney disease, stage 2 (mild); J44.9 Chronic obstructive pulmonary disease, unspecified; F98.8 Other specified behavioral and emotional disorders with onset usually occurring in childhood and adolescence; E03.9 Hypothyroidism, unspecified; F32.A Depression, unspecified; M10.9 Gout, unspecified
CPT/HCPCS: A4314; A6197; A9284; A9500; C1776; J0690; J0696; J1100; J2250; J2270; J2405; J2704; J2765; J2785; J2795; J3010; J7030; J7120

== ENCOUNTER 2024-04-12 00:19 | Inpatient (IN) | payer MEDICARE, BC ==
[2024-04-12] VITALS (11 sets, daily range): BP systolic 125–162; BP diastolic 46–77; PULSE 69–84; TEMP 97.8–102.7
[~2024-04-12] VITALS: Ht 170.2 cm; Wt 97.2 kg
[~2024-04-12 00:19] MED LIST changes: +ABILIFY5 MG PO; +ARTIFICIAL TEAR15 M7 OP; +ATARAX 25MG25 MG/TAB PO; +COLACE 100100 MG/CAP PO; +CYMBALTA 20MG20 MG PO; +CYMBALTA 30MG30 MG PO; +GENTLE LAXATIVE10 MG RC; +GOOD NEIGH1200 MG/15 PO; +IMODIUM 2MG CAPS2 MG PO; +KLOR-CON M1010 MEQ PO; +LASIX 20MG TABL20 MG PO; +MIRALAX PA17 GM/Dose PO; +MYLANTA MAXIMU355 M1 PO; +NIZORAL SHAMPO120 M1 TP; +NYSTATIN CREAM15 GM TP; +NYSTATIN100000 U/1 TOP; +SINEMET 25/101 UDTAB PO; +SINGULAIR 110 MG/TAB PO; +SYNTHROID 0.0.025 MG PO; +SYNTHROID0.175 MG PO; +TESSALON PERLE200 MG PO; +THERATEARS 15 M15 ML OU; +TRIAMCINOLONE A15 G3 TP; +WELLBUTRIN XL150 MG PO; +ZYRTEC 10MG10 MG PO
[2024-04-12] MEDS ORDERED: NS 500 ML IV PRN (00:30)
[2024-04-12 01:04] LABS: BASO % 0.1 % (0.0-2.0); EOS % 0.2 % (0.0-4.0); GRAN # 10.3 K/mm3 (1.4-6.5); GRAN % 76.7 % (42.2-75.2); HEMATOCRIT 39.8 % (37.0-47.0); HEMOGLOBIN 13.1 g/dl (12.5-16.0); LYMPH # 1.7 K/mm3 (1.2-3.4); LYMPH % 12.3 % (20.0-51.0); MEAN CELL VOLUME 95 fl (80.0-100.0); MEAN CORPUSCULAR HEMOGLOBIN 31 pg (27-31); MEAN CORPUSCULAR HGB CONC 33 g/dl (33.0-37.0); MEAN PLATELET VOLUME 10.2 fl (7.4-10.4); MONO # 1.4 K/mm3 (0.1-0.6); MONO % 10.1 % (1.7-9.3); PLATELET COUNT 158 K/mm3 (130-400); REDCELL DISTRIBUTION WIDTH-CV 14.6 % (11.5-14.5)
[2024-04-12 01:10] LABS: ALBUMIN 3.3 g/dL (3.4-4.8); ALKALINE PHOSPHATASE 72 U/L (40-150); ANION GAP 12 mmol/L (7-16); AST,SGOT 16 U/L (5-34); BILIRUBIN,TOTAL 2.1 mg/dL (0.2-1.2); BLOOD UREA NITROGEN 16 mg/dL (10-20); CALCIUM 9.5 mg/dL (8.4-10.2); CHLORIDE 97 mEq/L (98-107); GLUCOSE 107 mg/dL (70-99); SODIUM 136 mEq/L (136-145); TOTAL PROTEIN 7.1 g/dl (6.2-8.1)
[2024-04-12 01:17] LABS: ALANINE AMINOTRANSFERASE < 6 U/L (0-55)
[2024-04-12 01:18] LABS: TROPONIN-I < 0.010 ng/mL (0.00-0.033)
[2024-04-12] MEDS ORDERED: REFRESH TEARS 330 ML OU (01:48)
[2024-04-12] MEDS ORDERED: TESSALON PERLE200 MG PO (01:49)
[2024-04-12] MEDS ORDERED: ASPIRIN 32325 MG/TA1 PO (01:49)
[2024-04-12 01:51] LABS: C-REACTIVE PROTEIN 18.17 mg/dL (0.00-0.50)
[2024-04-12] MEDS ORDERED: PERIDEX (CHLOR480 ML PO (01:51)
[2024-04-12] MEDS ORDERED: DULCOLAX STOOL100 MG PO (01:51)
[2024-04-12] MEDS ORDERED: SANI-SUPP1 SUP RC (01:54)
[2024-04-12] MEDS ORDERED: MILK OF MA400 MG/52 PO (01:56)
[2024-04-12] MEDS ORDERED: XIIDRA1 EACH OU (02:01)
[2024-04-12 02:02] LABS: COLLECTION METHOD CLEAN CATCH
[2024-04-12 02:11] LABS: PH 6.5 (5.0-8.5); URINE APPEARANCE CLEAR (CLEAR/HAZY); URINE BLOOD NEGATIVE (NEGATIVE); URINE COLOR YELLOW (YELLOW); URINE GLUCOSE NEGATIVE (NEGATIVE); URINE KETONE NEGATIVE (NEGATIVE); URINE NITRATE POSITIVE (NEGATIVE); URINE PROTEIN(semi-quant) NEGATIVE (NEGATIVE)
[2024-04-12 02:53] LABS: BUDDING YEAST PRESENT (NOT PRESENT); SQUAMOUS EPITHELIAL 0-2 /hpf (0-10); URINE BACTERIA MANY /hpf (NONE SEEN)
[2024-04-12] MEDS ORDERED: Ketorolac 15 MG/ML VIAL IV ONE (03:15)
[2024-04-12] MEDS ORDERED: Albuterol/Ipratropium 3 MG-0.5 MG/3 ML Neb Soln IH PRN (04:30)
[2024-04-12] MEDS ORDERED: NS 1,000 ML IV SCH (04:30)
--- NOTE | 2024-04-12 05:49 | NUR ---
RECIEVED REPORT FROM MATTHEW JAVED RN. LUZ ARRIVED TO UNIT AROUND [id number], ALL BELONGINGS WITH PATIENT AT TIME OF TRANSFER. NO ACUTE EVENTS. NO FAMILY WITH PATIENT AT TIME OF TRANSFER.
[2024-04-12] MEDS ORDERED: MIRALAX119G PO (06:24)
[2024-04-12] MEDS ORDERED: MYCOSTATIN100000 U/1 TP (06:27)
[2024-04-12] MEDS ORDERED: Mag/Al Hydrox/Simeth Susp 30 ML CUP PO PRN (06:30)
[2024-04-12] MEDS ORDERED: Nystatin 100,000 Units/GM Cream 15 GM TUBE TP PRN (06:30)
[2024-04-12] MEDS ORDERED: Polyethylene Glycol 3350 17 GM PDS PO PRN (06:30)
[2024-04-12] MEDS ORDERED: Benzonatate 100 MG CAP PO PRN (06:30)
[2024-04-12] MEDS ORDERED: Magnes Hydrox (MOM) 80 MG/ML 30 ML CUP PO PRN (06:30)
[2024-04-12] MEDS ORDERED: TYLENOL 325MG325 MG PO (06:31)
[2024-04-12] MEDS ORDERED: Acetaminophen 325 MG TAB PO SCH (06:45)
[2024-04-12] MEDS ORDERED: Formoterol 20 MCG,Budesonide 0.5 MG IH SCH (07:00)
[2024-04-12] MEDS ORDERED: Albuterol/Ipratropium 3 MG-0.5 MG/3 ML Neb Soln IH SCH (08:00)
--- NOTE | 2024-04-12 08:00 | NUR ---
PATIENT APPEARS TO BE RESTING. PATIENT OPENS EYES TO NAME. PATIENT APPEARS TO MAKE NO EFFORT IN ANSWERING QUESTIONS ASKED. PUPILS EQUAL AND REACTIVE. PATIENT ABLE TO FOLLOW SOME COMMANDS SUCH TESTING HAND BLOCK HANDLER. PAPTIETN UNABLE TO RAISE LEGS OR ARMS ON COMMAND. PATIENTS BODY APPEARS TO BE STIFF, BLE AND BUE. PATIENT NOTED TO HAVE PURPLE COLOR TO HEELS, BLACK HEEL BOOTS APPLIED, OVERLA ORDERED TO PREVENT SKIN BREAKDOWN. PATIENTS CALL LIGHT WTIHIN REACH. FALL PRECAUTIONS IN PLACE. BED ALARM ON, FOLEUY PATENT AND DRAINING.
[2024-04-12] MEDS ORDERED: Cetirizine 10 MG TAB PO SCH (09:00)
[2024-04-12] MEDS ORDERED: Metoprolol Tartrate 25 MG TAB PO SCH (09:00)
[2024-04-12] MEDS ORDERED: Aspirin Buffered 325 MG TAB PO SCH (09:00)
[2024-04-12] MEDS ORDERED: buPROPion XL (24-HR) 150 MG TAB PO SCH (09:00)
[2024-04-12] MEDS ORDERED: Miconazole 2% Topical Powder BOTTLE TP SCH (09:00)
[2024-04-12] MEDS ORDERED: Montelukast 10 MG TAB PO SCH (09:00)
[2024-04-12] MEDS ORDERED: Carboxymethylcellulose PF Ophth 0.4 ML DROPPERETTE OP SCH (09:00)
[2024-04-12] MEDS ORDERED: Chlorhexidine 0.12% Oral Rinse 480 ML BOTTLE MM SCH (09:00)
[2024-04-12] MEDS ORDERED: Allopurinol 300 MG TAB PO SCH (09:00)
[2024-04-12] MEDS ORDERED: DULoxetine 30 MG CAP PO SCH (09:00)
[2024-04-12] MEDS ORDERED: Nystatin Powder **** subs to Miconazole Powder TOP SCH (09:00)
[2024-04-12] MEDS ORDERED: REFRESH CELLUVI1 SOL OU (10:14)
[2024-04-12] MEDS ORDERED: CYMBALTA 60MG60 MG PO (10:15)
--- NOTE | 2024-04-12 11:30 | NUR ---
INFORMED OF PATIENT TEMPERATURE OF 102.7 AND ELEVEATED BP. CARLITOS HAS PRN TYLENOL PO HOWEVER IS CURRENTLY NPO FOR SPEECH EVAL. THIS RN TO GIVE RECTAL TYLENOL. PHARMACY WILL PLACE ORDERS. THIS RN PLACED ICE PACKS TO AUXILLARY AREA AND COLD TOWEL TO FOREHEAD/
--- NOTE | 2024-04-12 13:20 | NUR ---
MD INFORMED PER SPEECH PATEINT TP REMAIN NPO, SPEECH EVAL FAILED
[2024-04-12] MEDS ORDERED: hydrALAZINE 20 MG/ML 1 ML VIAL IV PRN (13:30)
--- NOTE | 2024-04-12 14:54 | NUR ---
s iron worker attended clinical rounding and pt was not AX0 and did not meaningfully participate in discussion. HARITHA called son, Jorge Luis [phone] who confirms pt resides at [facility]. She sees Dr. Washington and obtains her medications from [facility] with no difficulties. He verified her insurance as Medicare A/B and BCBS Federal. Son reports pt requires full assistance with ADLS and uses a wheelchair for DME. HARITHA verified DPOA-HC as son, Jorge Luis who was agreeable to this. HARITHA confirmed with [facility] that pt is there for LTC. HARITHA Lorenzana faxed updates to [facility]. Discharge Plan: return to [facility]
--- NOTE | 2024-04-12 19:39 | NUR ---
RECEIVED CHANGE OF SHIFT REPORT FROM DAY SHIFT NURSE.
[2024-04-12] MEDS ORDERED: Pravastatin 20 MG TAB PO SCH (21:00)
[2024-04-12] MEDS ORDERED: Docusate Sodium 100 MG CAP PO SCH (21:00)
[2024-04-13] VITALS (11 sets, daily range): BP systolic 144–168; BP diastolic 64–87; PULSE 80–94; TEMP 98.2–102.1
[2024-04-13 07:37] LABS: BASO % 0.2 % (0.0-2.0); GRAN # 7.2 K/mm3 (1.4-6.5); GRAN % 81.2 % (42.2-75.2); HEMATOCRIT 37.1 % (37.0-47.0); LYMPH # 0.6 K/mm3 (1.2-3.4); LYMPH % 7.3 % (20.0-51.0); MEAN CELL VOLUME 94 fl (80.0-100.0); MEAN CORPUSCULAR HEMOGLOBIN 30 pg (27-31); MEAN CORPUSCULAR HGB CONC 32 g/dl (33.0-37.0); MEAN PLATELET VOLUME 10.3 fl (7.4-10.4); MONO # 0.9 K/mm3 (0.1-0.6); MONO % 10.6 % (1.7-9.3); PLATELET COUNT 139 K/mm3 (130-400); RED BLOOD COUNT 3.96 M/mm3 (4.10-5.30); REDCELL DISTRIBUTION WIDTH-CV 14.4 % (11.5-14.5)
--- NOTE | 2024-04-13 07:41 | NUR ---
CHANGE OF SHIFT REPORT GIVEN TO DAY SHIFT NURSERAYMOND. PATIENT NONVERBAL WITH STAFF FOR MOST OF SHIFT, FOLLOWED SOME COMMANDS WHEN AWAKE, OXYGEN CONTINUED PER NASAL CANNULA. IV FLUIDS INFUSED WITHOUT PROBLEMS. VELEZ IN PLACE DRAINING DARK YELLOW URINE.
[2024-04-13 08:28] LABS: CALCIUM 9.1 mg/dL (8.4-10.2); CREATININE, serum 0.98 mg/dL (0.57-1.11); POTASSIUM 3.8 mEq/L (3.5-4.5)
[2024-04-13 08:54] LABS: THYROID STIMULATING HORMONE 1.55 uIU/mL (0.350-4.940)
[2024-04-13] MEDS ORDERED: DULoxetine 30 MG CAP PO SCH (09:00)
--- NOTE | 2024-04-13 10:36 | NUR ---
MRI UNABLE TO GET AHOLD OF PATIENTS DPOA. PER MRI PATIENT CAN DO AN ABD KUB TO CLEAR PATIENT FOR MRI.
--- NOTE | 2024-04-13 12:54 | NUR ---
convention worker secure emailed clinical updates to [facility]. Discharge plan: Return to [facility]
--- NOTE | 2024-04-13 19:09 | NUR ---
PATIENT TOLERATED MRI WELL. SHE IS AWAKE AND ALERT, SITTING UP IN BED. PATIENT HAS BEEN MORE RESPONSIVE TO YES OR NO QUESTIONS. CALL LIGHT WTIHIN REACH. FALL PRECAUTIONS IN PLACE. AGUSTIN PATENT.
--- NOTE | 2024-04-13 19:37 | NUR ---
RECEIVED CHANGE OF SHIFT REPORT FROM DAY SHIFT NURSE.
[2024-04-13] MEDS ORDERED: DULoxetine 60 MG CAP PO SCH (21:00)
[2024-04-14] VITALS (12 sets, daily range): BP systolic 135–169; BP diastolic 73–79; PULSE 67–90; TEMP 97.6–102.4
--- NOTE | 2024-04-14 01:00 | NUR ---
TYLENOL GIVEN FOR TEMP OF 101.4, SEE MAR
--- NOTE | 2024-04-14 02:00 | NUR ---
PATIENT STARTLES AWAKE WHEN NAME IS CALLED AND RESPONDS TO QUESTIONS APPROPRIATELY AND CLEARLY SO FAR THIS SHIFT.
--- NOTE | 2024-04-14 03:57 | NUR ---
VELEZ DEPENDENT DRAINAGE BAG CHANGED.
[2024-04-14 06:36] LABS: BASO % 0.1 % (0.0-2.0); EOS % 0.1 % (0.0-4.0); GRAN % 80.1 % (42.2-75.2); HEMOGLOBIN 11.9 g/dl (12.5-16.0); LYMPH # 0.8 K/mm3 (1.2-3.4); LYMPH % 8.6 % (20.0-51.0); MEAN CELL VOLUME 93 fl (80.0-100.0); MEAN CORPUSCULAR HEMOGLOBIN 31 pg (27-31); MEAN CORPUSCULAR HGB CONC 33 g/dl (33.0-37.0); MEAN PLATELET VOLUME 10.3 fl (7.4-10.4); MONO # 0.9 K/mm3 (0.1-0.6); MONO % 10.6 % (1.7-9.3); PLATELET COUNT 150 K/mm3 (130-400); RED BLOOD COUNT 3.87 M/mm3 (4.10-5.30); REDCELL DISTRIBUTION WIDTH-CV 14.4 % (11.5-14.5)
[2024-04-14 06:37] LABS: CALCIUM 9.2 mg/dL (8.4-10.2); CREATININE, serum 0.89 mg/dL (0.57-1.11); HEMATOCRIT 35.9 % (37.0-47.0); POTASSIUM 3.7 mEq/L (3.5-4.5)
--- NOTE | 2024-04-14 07:04 | NUR ---
CHANGE OF SHIFT REPORT GIVEN TO DAY SHIFT NURSEGRAYSON.
--- NOTE | 2024-04-14 10:14 | NUR ---
Vancomycin Initial Dosing Pharmacy Note Ordering provider: Alecia Hicks E., MD Indication/duration: PNA, 7 days LABS: SCr 0.89, CrCl~53, GFR 66 Recommendation: Will start Vancomcyin 1 gm IV q12h. Pharmacy will continue to closely monitor and check a trough on 04/16/24. Maintenance dose: 1 gram every 12 hours Trough goal: 15-20 ug/mL
[2024-04-14] MEDS ORDERED: Meropenem 500 MG in Water For Injection,Sterile 10 ML IV SCH (12:00)
--- NOTE | 2024-04-14 12:00 | NUR ---
PATIENT AWAKE AND ALERT , SITITNG UP AND PARTICIPATING IN CONVERSATION WITH APPROPRIATE RESPONSES. PATIENTS DENIES ANY NEEDS OR COMPLAINTS AT THIS TIME. IVF INFUSING, CALL LIGHT WITHIN REACH. PATENTS VELEZ PATENT, CATH CARE COMPLETED. PATIETNS DAUGHTER IS AT BEDSIDE.
[2024-04-14] MEDS ORDERED: Furosemide 40 MG/4 ML VIAL IV ONE (13:45)
--- NOTE | 2024-04-14 15:27 | NUR ---
Biological Technician faxed clinical updates to Pa.
--- NOTE | 2024-04-14 20:00 | NUR ---
PT SLEEPING IN BED, AROUSES TO VOICE AND TOUCH. SCHEDULED MEDS GIVEN PER eMAR. MEDS CRUSHED IN PUDDING. PT DID NOT TOLERATE ORAL RINSE AND SWALLOWED MEDICATIONS D/T WEAKNESS. PT DENIES PAIN. PT REPOSITIONED IN BED. 2L O2 VIA NC. NO FURTHER CONCERNS. BED ALARM ON AND CALL LIGHT WITHIN REACH.
[2024-04-15] VITALS (10 sets, daily range): BP systolic 124–171; BP diastolic 64–81; PULSE 75–78; TEMP 97.8–100.1
[2024-04-15 07:18] LABS: BASO % 0.2 % (0.0-2.0); EOS % 0.2 % (0.0-4.0); GRAN % 79.9 % (42.2-75.2); HEMOGLOBIN 11.8 g/dl (12.5-16.0); LYMPH # 0.9 K/mm3 (1.2-3.4); LYMPH % 9.9 % (20.0-51.0); MEAN CELL VOLUME 93 fl (80.0-100.0); MEAN CORPUSCULAR HEMOGLOBIN 30 pg (27-31); MEAN CORPUSCULAR HGB CONC 33 g/dl (33.0-37.0); MEAN PLATELET VOLUME 9.9 fl (7.4-10.4); MONO # 0.8 K/mm3 (0.1-0.6); MONO % 9.1 % (1.7-9.3); PLATELET COUNT 166 K/mm3 (130-400); RED BLOOD COUNT 3.88 M/mm3 (4.10-5.30); REDCELL DISTRIBUTION WIDTH-CV 14.5 % (11.5-14.5)
[2024-04-15 07:31] LABS: HEMATOCRIT 35.9 % (37.0-47.0)
[2024-04-15 07:33] LABS: CALCIUM 9.4 mg/dL (8.4-10.2); CREATININE, serum 0.85 mg/dL (0.57-1.11); POTASSIUM 3.2 mEq/L (3.5-4.5)
[2024-04-15] MEDS ORDERED: Potassium Bicarbonate/Citrate 20 MEQ Effervescent TAB PO SCH (08:30)
[2024-04-15] MEDS ORDERED: *Potassium Replacement Protocol MC SCH (08:30)
--- NOTE | 2024-04-15 10:00 | NUR ---
MD MADE AWARE OF RN CONCERNS REGARDING PATIENTS INCREASED COURSE BREATH SOUNDS, AND PITTING EDEMA NOTED TO BOTH UPPER EXTREMITIES WELL PATIENTS HIPS.
[2024-04-15] MEDS ORDERED: Furosemide 40 MG/4 ML VIAL IV ONE (11:30)
[2024-04-15] MEDS ORDERED: AMPICILLIN IV SCH (12:30)
[2024-04-15] MEDS ORDERED: NS IV SCH ×2 (12:30→13:30)
--- NOTE | 2024-04-15 12:55 | NUR ---
HARITHA faxed clinical updates to Pa.
[2024-04-15] MEDS ORDERED: ACYCLOVIR IV SCH (13:30)
[2024-04-15] MEDS ORDERED: Iohexol 300 - 100 ML VIAL IV ONE (14:12)
--- NOTE | 2024-04-15 17:30 | NUR ---
PATIENT AWAKE AND ALERT, SITTING UP IN BED, PATIENTS DAUGHTER AT BEDSIDE. CALL LIGHT WTIHIN REACH. 2LNC. VELEZ PATENT AND DRAINING. PATIENTS CALL LIGHT WITHIN FALL PRECAUTIONS IN PLACE. PATIENT HAD TWO FORMED BM THIS SHIFT.
--- NOTE | 2024-04-15 19:40 | NUR ---
Patient resting in bed. Denies any pain at this time. Needs met. Assessment complete. IV in left forearm flushes easily without complications. Kelley boots in place. Neuro check complete. Edema to BUE. Patient is alert to self and place but not the year. Follows commands. Call light and personal items in reach. Bed in low position and bed alarm on.
[2024-04-16] VITALS (11 sets, daily range): BP systolic 132–152; BP diastolic 51–73; PULSE 57–85; TEMP 97.7–98.8
[2024-04-16 06:11] LABS: BASO % 0.3 % (0.0-2.0); EOS # 0.1 K/mm3 (0.0-0.7); EOS % 1.7 % (0.0-4.0); GRAN # 5.3 K/mm3 (1.4-6.5); GRAN % 75.3 % (42.2-75.2); HEMOGLOBIN 11.8 g/dl (12.5-16.0); LYMPH # 0.9 K/mm3 (1.2-3.4); LYMPH % 12.2 % (20.0-51.0); MEAN CELL VOLUME 92 fl (80.0-100.0); MEAN CORPUSCULAR HEMOGLOBIN 31 pg (27-31); MEAN CORPUSCULAR HGB CONC 33 g/dl (33.0-37.0); MEAN PLATELET VOLUME 10.4 fl (7.4-10.4); MONO # 0.6 K/mm3 (0.1-0.6); MONO % 9.1 % (1.7-9.3); RED BLOOD COUNT 3.84 M/mm3 (4.10-5.30); REDCELL DISTRIBUTION WIDTH-CV 14.2 % (11.5-14.5)
[2024-04-16 06:37] LABS: CALCIUM 8.9 mg/dL (8.4-10.2); CREATININE, serum 0.77 mg/dL (0.57-1.11); MAGNESIUM 1.9 mg/dL (1.6-2.6); POTASSIUM 3.4 mEq/L (3.5-4.5)
[2024-04-16 06:46] LABS: HEMATOCRIT 35.5 % (37.0-47.0); PLATELET COUNT 157 K/mm3 (130-400)
[2024-04-16] MEDS ORDERED: *Potassium Replacement Protocol MC SCH ×2 (07:30→15:15)
[2024-04-16] MEDS ORDERED: Potassium Bicarbonate/Citrate 20 MEQ Effervescent TAB PO SCH (07:30)
--- NOTE | 2024-04-16 11:35 | NUR ---
THIS RN TRANSFERRED PATIENT VIA BED DOWN TO RADIOLOGY FOR LP PROCEDURE.
[2024-04-16 12:37] LABS: TOTAL PROTEIN,CSF 56 mg/dL (15-45)
--- NOTE | 2024-04-16 13:59 | NUR ---
Sign Manufacturer contacted Meagan ackerman [facility] and faxed clinical updates.
[2024-04-16 14:55] LABS: CSF APPEARANCE CLEAR; CSF COLOR COLORLESS
[2024-04-16 14:58] LABS: CSF RBC 693 /mm3 (0-0)
[2024-04-16 15:08] LABS: CSF MONONUCLEAR 100 % (70-100); CSF POLYMORPHONUCLEAR 0 % (0-6)
[2024-04-16] MEDS ORDERED: Potassium Chloride 100 ML IV SCH (15:15)
--- NOTE | 2024-04-16 18:47 | NUR ---
PT STATES SHE DOES HAVE A PRODUCTIVE COUGH BUT DOES NOT KNOW WHAT HER SPUTUM LOOKS LIKE.
--- NOTE | 2024-04-16 23:18 | NUR ---
PATIENT RESTING IN BED. FALLS ASLEEP EASILY WHILE RN IS DOING ASSESSMENT BUT IS ALSO EASILY ROUSED. REPORTS SOME DISCOMFORT FROM THE NEED TO HAVE A BOWEL MOVEMENT BUT IS UNCOMFORTABLE WITH USING THE BEDPAN OR BEDSIDE COMMODE. VELEZ CATHETER IN PLACE. CALL LIGHT WITHIN REACH. BED IS LOCKED AND IN LOW POSITIN.
[2024-04-17] VITALS (11 sets, daily range): BP systolic 119–152; BP diastolic 50–63; PULSE 60–72; TEMP 97.7–98.5
[2024-04-17 06:30] LABS: HEMOGLOBIN 11.4 g/dl (12.5-16.0); MEAN CELL VOLUME 91 fl (80.0-100.0); MEAN CORPUSCULAR HEMOGLOBIN 31 pg (27-31); MEAN CORPUSCULAR HGB CONC 33 g/dl (33.0-37.0); MEAN PLATELET VOLUME 10.1 fl (7.4-10.4); PLATELET COUNT 197 K/mm3 (130-400); RED BLOOD COUNT 3.74 M/mm3 (4.10-5.30); REDCELL DISTRIBUTION WIDTH-CV 13.7 % (11.5-14.5)
[2024-04-17 06:38] LABS: HEMATOCRIT 34.2 % (37.0-47.0)
[2024-04-17 06:49] LABS: CREATININE, serum 0.75 mg/dL (0.57-1.11); POTASSIUM 4.2 mEq/L (3.5-4.5)
[2024-04-17 06:56] LABS: CALCIUM 9.1 mg/dL (8.4-10.2)
--- NOTE | 2024-04-17 07:00 | NUR ---
PATIENT AWAKE AND ALERT, SITITNG UP IN BED. PATIENT DENIES ANY NEEDS OR COMPLAINTS AT THIS TIME. CALL LIGHT WTIHIN REACH, PATIENT CHECKED AND REPOSITIONED. O2 AT 2LNC, AIR MATRESS ON , VELEZ PATENT AND DRAINING.
[2024-04-17 07:19] LABS: EOSINOPHIL 1 % (0-4); LYMPHOCYTE 19 % (20.0-51.0); NEUTROPHILS 72 % (42.0-75.2); PLATELET ESTIMATE NORMAL (NORMAL)
--- NOTE | 2024-04-17 13:24 | NUR ---
HARITHA faxed updates to [facility]. Discharge Plan: return to [facility]
--- NOTE | 2024-04-17 20:10 | NUR ---
Patient resting in bed. Denies any pain at this time. Needs met. Assessment complete. PICC to right upper arm flushes easily with good blood return. Kelley boots in place. Call light and personal items in reach. Bed in low position and bed alarm on.
[2024-04-18] VITALS (7 sets, daily range): BP systolic 124–150; BP diastolic 55–71; PULSE 61–63; TEMP 97.9–98.6
[2024-04-18 07:02] LABS: HEMOGLOBIN 11.9 g/dl (12.5-16.0); MEAN CELL VOLUME 92 fl (80.0-100.0); MEAN CORPUSCULAR HEMOGLOBIN 31 pg (27-31); MEAN CORPUSCULAR HGB CONC 33 g/dl (33.0-37.0); MEAN PLATELET VOLUME 9.8 fl (7.4-10.4); PLATELET COUNT 203 K/mm3 (130-400); RED BLOOD COUNT 3.87 M/mm3 (4.10-5.30); REDCELL DISTRIBUTION WIDTH-CV 13.9 % (11.5-14.5)
[2024-04-18 07:09] LABS: HEMATOCRIT 35.7 % (37.0-47.0)
[2024-04-18 07:13] LABS: CALCIUM 8.7 mg/dL (8.4-10.2); CREATININE, serum 0.77 mg/dL (0.57-1.11); POTASSIUM 4.2 mEq/L (3.5-4.5)
[2024-04-18 07:40] LABS: BAND 3 % (0-10); EOSINOPHIL 3 % (0-4); LYMPHOCYTE 14 % (20.0-51.0); NEUTROPHILS 71 % (42.0-75.2); PLATELET ESTIMATE NORMAL (NORMAL)
[2024-04-18] MEDS ORDERED: MONODOX100 PO (09:09)
[2024-04-18] MEDS ORDERED: CIPRO 500MG TA500 MG PO (09:09)
[2024-04-18] MEDS ORDERED: ASPIRIN 81M81 MG/TA2 PO (09:10)
[2024-04-18] MEDS ORDERED: Doxycycline Monohydrate 100 MG CAP PO SCH (09:10)
[2024-04-18] MEDS ORDERED: Ciprofloxacin 500 MG TAB PO SCH (09:10)
--- NOTE | 2024-04-18 10:05 | NUR ---
QTC 501. Ramona Quinones RN notified and order received to administer the Tikosyn.
--- NOTE | 2024-04-18 12:07 | NUR ---
Pt. laying in bed. Pt. is alert and confused. PICC line was discontinued by TACO Roy, AIVS. Dressing CDI at this time. Pt. flat time complete. Shift assessment completed. Plan for discharge to [facility] at 1230. Pt. denies further needs, call light within reach.
--- NOTE | 2024-04-18 12:32 | NUR ---
Graphics Programmer attended clinical rounds with the team and patient is ready for discharge today. HARITHA contacted Meagan at [facility] and faxed clinical updates. Meagan advised they can accept today and transport time was set for 1230. HARITHA sent discharge orders via secure email. HARITHA contacted patient's son, Jorge Luis to provide update and review IM over the phone. Jorge Luis verbalized understanding of IM and SW placed the form in patient's chart. HARITHA also provided copy in patient's discharge folder. Discharge Plan: [facility]
--- NOTE | 2024-04-18 13:13 | NUR ---
Pt. cement mixer driver here at this time. Pt. assisted to Wheelchair with 3 assist. Belongings sent with auto transport driver. Report called to TACO Abbasi at [facility].
[2024-04-19 14:12] LABS: HSV 2 DNA PCR QUAL Negative (Negative)
== END 2024-04-18 13:23 | DRG 871 ==
LOC: COL.ER 00:19 → MEDICAL 04:17
PROVIDERS: Emergency Medicine; Nurse Practitioner Family; ADMIT Hospitalist
PROC: 02HV33Z Insertion of Infusion Device into Superior Vena Cava, Percutaneous Approach (ICD-10-PCS; principal; 2024-04-12)
DX: A41.9 Sepsis, unspecified organism (principal); G93.41 Metabolic encephalopathy; J96.01 Acute respiratory failure with hypoxia; J69.0 Pneumonitis due to inhalation of food and vomit; I50.30 Unspecified diastolic (congestive) heart failure; I13.2 Hypertensive heart and chronic kidney disease with heart failure and with stage 5 chronic kidney disease, or end stage renal disease; G31.84 Mild cognitive impairment of uncertain or unknown etiology; G20.A1 Parkinson's disease without dyskinesia, without mention of fluctuations; J45.909 Unspecified asthma, uncomplicated; J44.9 Chronic obstructive pulmonary disease, unspecified; I25.10 Atherosclerotic heart disease of native coronary artery without angina pectoris; Z95.5 Presence of coronary angioplasty implant and graft; E78.5 Hyperlipidemia, unspecified; I27.20 Pulmonary hypertension, unspecified; N18.32 Chronic kidney disease, stage 3b; E87.6 Hypokalemia; F98.8 Other specified behavioral and emotional disorders with onset usually occurring in childhood and adolescence; F32.A Depression, unspecified; E03.9 Hypothyroidism, unspecified; M10.9 Gout, unspecified
CPT/HCPCS: C1751; C1892; J0133; J0290; J0360; J1650; J1885; J1940; J2185; J2543; J3370; J3480; J7030; J7040; J7050; Q3014; Q9967